=== PATIENT | male | born 1985 | race African-American/Black ===

== ENCOUNTER → 2020-07-29 | Outpatient (CLI) | payer BC, MEDICARE, MEDICAID ==
--- NOTE | 2020-07-29 17:25 | RAD ---
EXAMINATION: XR HIP (WITH OR WITHOUT PELVIS) 1 VIEW, XR KNEE 3 VIEWS, XR LUMBAR SPINE 4+V CLINICAL HISTORY: Low back pain, bilateral hip pain, bilateral knee pain TECHNIQUE: XR HIP (WITH OR WITHOUT PELVIS) 1 VIEW, XR KNEE 3 VIEWS, XR LUMBAR SPINE 4+V Number of Images/Views: 5 L-spine, 5 hips, 6 knees COMPARISON: None FINDINGS: L-SPINE: Minimal levorotation of the lumbar spine, possibly positional. No evidence of acute fracture or spondylolisthesis. Mild disc space narrowing L4-5 and L5-S1. Minimal disc space narrowing L3-4. M ild endplate osteophytosis and facet arthropathy in the lower lumbar spine. Surgical clips projected over the left lower quadrant. HIPS: Bilateral nonspherical appearance of the femoral heads with bony prominence along the superior femoral head-neck junctions, compatible with cam-type femoroacetabular morphology. Joint spaces and t he bilateral hips relatively well-maintained. Pubic symphysis and SI joints maintained. No acute frac ture. KNEES: Mild medial lateral compartment narrowing bilaterally. No acute fracture. Small infrapatellar enthesophytes bilaterally. No significant joint effusion. IMPRESSION: Mild lumbar degenerative disc disease and facet arthropathy as described, greatest at L4-5. 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 Mild degenerative changes bilateral knees as described. Electronically signed by: Reji Díaz DO (07/29/2020 5:22 PM) [id number]
== END ==
LOC: DXRAD 13:59
PROVIDERS: ATTEND Internal Medicine
DX: M51.36 Other intervertebral disc degeneration, lumbar region (principal); M48.07 Spinal stenosis, lumbosacral region; M25.78 Osteophyte, vertebrae; M17.0 Bilateral primary osteoarthritis of knee; M25.551 Pain in right hip; M25.552 Pain in left hip
CPT/HCPCS: 72110; 73521; 73562